=== PATIENT | female | born 1950 | race Caucasian/White ===

== ENCOUNTER 2020-05-01 13:00 | Outpatient (RCR) | payer MEDICARE | END 2020-05-15 | disposition home or self-care (01) | LOC: MKS.ESL.PT | DX: N39.46 Mixed incontinence (principal) ==

== ENCOUNTER 2020-05-24 15:09 | Outpatient (RCR) | payer MEDICARE | END 2020-05-24 16:46 | disposition home or self-care (01) | LOC: MKS.ESL.PT 15:09 | DX: N39.46 Mixed incontinence (principal) ==

== ENCOUNTER 2022-03-22 12:50 | Emergency (ER) | payer MEDICARE ==
[~2022-03-22] VITALS: Ht 170.2 cm; Wt 88.6 kg
[2022-03-22 12:56] VITALS: TEMP 97.3
[2022-03-22 13:52] LABS: BASO # 0.1 K/mm3 (0.0-0.2); BASO % 0.6 % (0.0-2.0); EOS # 0.1 K/mm3 (0.0-0.7); EOS % 1.7 % (0.0-4.0); GRAN # 5.3 K/mm3 (1.4-6.5); GRAN % 64.2 % (42.2-75.2); HEMATOCRIT 40.2 % (37.0-47.0); HEMOGLOBIN 13.6 g/dl (12.5-16.0); LYMPH # 1.9 K/mm3 (1.2-3.4); LYMPH % 22.9 % (20.0-51.0); MEAN CELL VOLUME 89 fl (80.0-100.0); MEAN CORPUSCULAR HEMOGLOBIN 30 pg (27-31); MEAN CORPUSCULAR HGB CONC 34 g/dl (33.0-37.0); MEAN PLATELET VOLUME 10.4 fl (7.4-10.4); MONO # 0.8 K/mm3 (0.1-0.6); PLATELET COUNT 252 K/mm3 (130-400); RED BLOOD COUNT 4.54 M/mm3 (4.10-5.30); REDCELL DISTRIBUTION WIDTH-CV 12.8 % (11.5-14.5)
[2022-03-22 14:00] LABS: ALBUMIN 3.7 gm/dL (3.4-4.8); BILIRUBIN,TOTAL 0.4 mg/dL (0.2-1.2); CALCIUM 8.7 mg/dL (8.4-10.2); CREATININE, serum 0.84 mg/dL (0.57-1.11); POTASSIUM 3.7 mmol/L (3.5-4.5); TOTAL PROTEIN 6.9 gm/dL (6.2-8.1)
[2022-03-22 14:05] LABS: SQUAMOUS EPITHELIAL 0-2 /hpf (0-10); URINE BACTERIA None Seen /hpf (NONE SEEN); URINE RBC 0-2 /hpf (0-2); URINE WBC 0-2 /hpf (0-2)
[2022-03-22 14:06] LABS: URINE APPEARANCE Clear (CLEAR/HAZY); URINE BLOOD TRACE-INTACT (NEGATIVE); URINE COLOR Yellow (YELLOW); URINE GLUCOSE Negative (NEGATIVE); URINE KETONE Negative (NEGATIVE); URINE NITRATE Negative (NEGATIVE); URINE PROTEIN(semi-quant) Negative (NEGATIVE); URINE UROBILINOGEN 0.2 (NEGATIVE)
[2022-03-22 14:30] LABS: COLLECTION METHOD CLEAN CATCH
[2022-03-22 15:28] VITALS: BP 111/52; PULSE 66
== END 2022-03-22 15:30 | disposition home or self-care (01) ==
LOC: COL.ER 12:50
PROVIDERS: Emergency Medicine
DX: R19.7 Diarrhea, unspecified (principal); Z91.040 Latex allergy status
CPT/HCPCS: J7120

== ENCOUNTER 2022-07-04 09:16 | Day surgery (SDC) | payer MEDICARE ==
[~2022-07-04] VITALS: Ht 170.2 cm; Wt 88.1 kg
[2022-07-04 10:19] VITALS: BP 107/65; PULSE 69; TEMP 97.2
[2022-07-04] MEDS ORDERED: OZEMPIC0.25 MG/0. SQ (10:27)
[2022-07-04] MEDS ORDERED: SYNTHROID0.1 MG/TAB PO (10:29)
[2022-07-04] MEDS ORDERED: WELLBUTRIN XL300 M1 PO (10:30)
[2022-07-04] MEDS ORDERED: VALTREX 50500 MG/TAB PO (10:31)
[2022-07-04] MEDS ORDERED: HCTZ12.5TAB PO (10:31)
[2022-07-04] MEDS ORDERED: MOBIC15 MG PO (10:33)
[2022-07-04] MEDS ORDERED: BENADRYL25 M2 PO (10:35)
[2022-07-04] MEDS ORDERED: FLONASEALLERGY NS (10:36)
[2022-07-04] MEDS ORDERED: OMEGA-3 FISH1000 MG PO (10:38)
[2022-07-04] MEDS ORDERED: MULTI VITAMINS1 TAB PO (10:39)
[2022-07-04] MEDS ORDERED: CALCIUM WITH D31 CTB (10:41)
[2022-07-04] MEDS ORDERED: LACTAID3000 UNIT PO (10:42)
[2022-07-04] MEDS ORDERED: TOPROL XL 50MG50 MG PO (10:43)
[2022-07-04] MEDS ORDERED: DESYREL 50MG50 MG PO (10:43)
[2022-07-04] MEDS ORDERED: LIPITOR 40MG TA40 MG PO (10:43)
[2022-07-04] MEDS ORDERED: ESTRACE0.1 MG/GM VG (10:45)
[2022-07-04] MEDS ORDERED: COLACE 100100 MG/CAP PO (10:46)
[2022-07-04 12:00] VITALS: BP 108/66; PULSE 69; TEMP 97
[2022-07-04 12:15] VITALS: BP 106/89; PULSE 60
[2022-07-04 12:30] VITALS: BP 112/63; PULSE 64
--- NOTE | 2022-07-04 12:40 | NUR ---
1200-PT TO BAY 2 PER CART FROM ENDO PROCEDURE ROOM. REPORT RECEIVED. VS OBTAINED. CALL LIGHT WITHIN REACH. PT DENIES ANY NEEDS AT THIS TIME. 1215-PT TOLERATING JUICE AND MUFFINS. DENIES ANY NEEDS. 1230-DISCHARGE EDUCATION COMPLETED AT THIS TIME. VERBALIZED UNDERSTANDING OF HOME AND FOLLOW UP CARE. ALL QUESTIONS ANSWERED. DISCHARGE PAPERWORK GIVEN TO PT. 1235-IV DC'D THIS TIME. PT DRESSED SELF WITHOUT ANY DIFFICULTIES. 1240-PT OFF UNIT PER WHEELCHAIR. PT DISCHARGED TO HOME WITH HER MOTHER PER PERSONAL VEHICLE.
== END 2022-07-04 12:40 | disposition home or self-care (01) ==
LOC: SDCO 09:16
DX: K59.09 Other constipation (principal); Z86.010 Personal history of colon polyps
CPT/HCPCS: J2704; J7120